=== PATIENT | female | born 1980 | race Caucasian/White ===

== ENCOUNTER 2017-01-20 10:12 | Day surgery (SDC) | payer OTHER ==
[~2017-01-20] VITALS: Ht 149.9 cm; Wt 60.6 kg
[2017-01-20] VITALS (11 sets, daily range): BP systolic 94–110; BP diastolic 54–79; PULSE 75–87; RESP 5–17; O2SAT 98–100
[~2017-01-20 10:12] MED LIST: ALBU8.5H2 INHALATION; Lactated Ringer's 1,000 ML IV ONE; PREN1TAB PO
[2017-01-20] MEDS ORDERED: Dexamethasone 4 mg/mL Inj ONE (10:13)
[2017-01-20] MEDS ORDERED: Ondansetron 2 mg/mL 2 mL Inj ONE (10:13)
[2017-01-20] MEDS ORDERED: MetoCLOpramide 5 mg/mL 2 mL Inj ONE (10:13)
[2017-01-20] MEDS ORDERED: Propofol 10,000 mCg/mL 20 mL Inj ONE (10:13)
[2017-01-20] MEDS ORDERED: fentaNYL-PF 50 mCg/mL 2 mL Inj ONE (10:13)
[2017-01-20] MEDS ORDERED: Phenylephrine/NS 100 mCg/mL 10 mL Syringe IVPUSH ONE (10:13)
[2017-01-20] MEDS ORDERED: Lactated Ringer's 500 ML IV PRN (11:12)
[2017-01-20] MEDS ORDERED: Lactated Ringer's 1,000 ML IV SCH (11:12)
[2017-01-20] MEDS ORDERED: Ondansetron 2 mg/mL 2 mL Inj IVPUSH PRN ×2 (11:15→12:50)
[2017-01-20] MEDS ORDERED: EPHEDrine Sulfate 50 mg/mL Inj IVPUSH PRN (11:15)
[2017-01-20] MEDS ORDERED: Albuterol 2.5 mg/3 mL Inhalation Solution NEB PRN (11:15)
[2017-01-20] MEDS ORDERED: Phenylephrine 10,000 mCg/mL Inj IVPUSH PRN (11:15)
[2017-01-20] MEDS ORDERED: HYDROmorphone 1 mg/mL Inj IVPUSH PRN ×2 (11:15→12:50)
[2017-01-20] MEDS ORDERED: fentaNYL-PF 50 mCg/mL 2 mL Inj IVPUSH PRN (11:15)
[2017-01-20] MEDS ORDERED: Dexamethasone 4 mg/mL Inj IVPUSH PRN (11:15)
[2017-01-20] MEDS ORDERED: MetoCLOpramide 5 mg/mL 2 mL Inj IVPUSH PRN ×2 (11:15→12:50)
--- NOTE | 2017-01-20 11:35 | PCM.HPANE ---
Patient Data Date of Service: Jan 20, 2017 Surgeon Admitting Provider:Mirian Jenkins MD Attending Provider:iMrian Jenkins MD Primary Care Physician:Ashleigh Barajas DO Other Provider:Josselin Aly Anesthesia Reason for Visit Missed Ab Ht/WT & BMI Height (Feet): 4 Height (Inches): 11 Weight (Kilograms): 60.6 Body Mass Index 26.00 Allergies Coded Allergies: No Known Allergies (Unverified , 01/19/17) Past Anesthesia History Anesthesia History: Denies:: Abnormal Airway, Anesthesia Reactions, Difficult Intubation, Fam Anesthesia Reaction, Fam Malignant Hypertherm, Malignant Hyperthermia Diabetes History Hx Diabetes?: No MRSA MRSA: No Medications Home Meds Incl Beta Bill: No Reported Medications Vit Comb.10/Iron/FA (Vitafol-Ob Caplet)1 Each Tablet1 Each PO 01/19/17 Albuterol HFA (Proair HFA)8.5 Gm Hfa.aer.ad2 Puffs INHALATION Q4H #1 INHALER 01/19/17 History History of ENT Problems?: No HEENT History: Denies:: Abnormal Airway Cataracts Difficult Intubation Dysphagia Glaucoma Hearing Problem Sinus Problem TMJ Denture Type: None Teeth Condition: Within Normal Limits Hx of Heart Problems?: No Cardiovascular History: Denies:: Abdominal Aortic Aneurism Atrial Fibrillation Cardiac Surgery Chest Pain Congestive Heart Failure Coronary Artery Disease Edema Heart Murmur Hypertension Irregular Heartbeat Rheumatic Fever Valvular Heart Disease Hx of Respiratory Problem?: Yes Respiratory History: Positive for:: Asthma Use of Inhalers / NEBS (Pro Air) Denies:: COPD Chest Surgery Cough Dyspnea Emphysema Hemoptysis Pulmonary Embolism Tuberculosis Use of C-PAP Machine Hx Neurologic Problems?: No Hx of GI Problems?: No Hx of Problems?: No Genitourinary History: Denies:: Urinary Tract Infection HX of Peritoneal Dialysis: No Female Hx: Positive for:: Currently (MISSED AB) Denies:: Endometriosis Pelvic Inflammatory Problems with Breasts? Skin History: Denies:: History Skin Disorders? Pressure Ulcers Hx Musculoskeletal Problems?: No Musculoskeletal History: Denies:: Back Injury Degenerative Joint Fibromyalgia Joint Replacement Musculoskeletal Trauma Myasthenia Gravis Osteoarthritis Rheumatoid Arthritis Systemic Lupus Hx of Psycho/Social Problems?: No Hx Surgeries?: No Other History: Positive for:: Hospitalization (Child ) Denies:: Cancer Thyroid Disease History Blood Transfusions: Positive for:: Accept Blood Products? Denies:: Blood Transfusions Hx Diabetes: No Hx Alcohol Use: Yes (occassionally)Hx Substance Use: No Stop/Bang Treated for Sleep Apnea?: No Do You Have a CPAP Machine?: No S-Snoring: Do You Snore Loudly: No T-Tired: feel tired, fatigued: No O-Obsered: Observed not breath: No P-Blood Pressure: treated: No B- Body Mass Index > 35 kg/m2: No A- Age over 50: No N- Neck Large Circumference: No G- Gender Male: No RICARDO Total Score: 0 Risk Assessment Category Category 1A: Patient has history of documented sleep apnea, and HAS NOT received any narcotic, sedative or anesthesia administration during this stay. Category 1B: Patient has history of documented sleep apnea, and HAS received any narcotic , sedative or anesthesia administration during this stay Category 2: Patient has SUSPECTED Obstructive Sleep Apnea, and HAS received any narcotic , sedative or anesthesia administration during this stay. Category 3: Patient has SUSPECTED Obstructive Sleep Apnea and HAS NOT received narcotic, sedative or anesthesia administration during this stay. Category 4: Outpatient in Procedural Areas with known sleep apnea or who screen positive for High Risk via the STOP/BANG questionnaire. Exam Exam Vital Signs Vital Signs Date Time Temp Pulse Resp B/P Pulse Ox O2 Delivery O2 Flow Rate FiO2 01/20/17 10:40 36.7 82 16 110/59 100 Room Air General Appearance: Alert, Oriented X3, Cooperative HEENT/AIRWAY: MP 1, Neck Movement, Mouth Opening (Wide) Lungs: Clear to Auscultation, Normal Air Movement Heart: Regular Rate/Rhythm, Normal S1, Normal S2 Meds/Labs/Diagnostics Admission Meds Current Medications Lactated Ringer's (Lr) 1,000 ml @ 120 mls/hr Q8H20M ONCE IV Last administered on 01/20/17t 10:37; Start 01/20/17 at 08:49; Stop 01/20/17 at 17:08 Plan Impression Patient chart reviewed, patient interviewed and anesthestic plan with risks, benefits, and alternatives discussed, and informed consent obtained. NPO per Anesth. Guidelines: Yes ASA Physical Status: ASA2 Mod Systemic Disease Anesthetic Plan: GA Bene/Risks/Altern/Consents: Yes HP Complete Prior to Induction: Yes Chad York MD Jan 20, 2017 11:12
--- NOTE | 2017-01-20 12:44 | PCM.SURGOP ---
Surgical Operative Report Date of Service: Jan 20, 2017 Pre Operative Diagnosis 1. Missed vs Pseudo sac Post Operative Diagnosis 1. Missed vs Pseudo sac Procedure: Suction dilation and curettage Surgeon and Card Stripper: Surgeon: Mirian Jenkins MD Assistants: None Indication for Procedure 36 y/o -0-0-2 with possible ectopic vs incomplete with slowly and inappropriately rising quantitative HCG levels, and vaginal spotting. Ultrasound finding showing an irregular appearing gestational sac within the uterus. Findings: Scant amount of tissue obtained with suction D&C Awaiting final pathology Normal appearing cervix, vagina and perineum. uterus was anteflexed and mobile. No palpable adnexal masses on exam. Procedure Details The patient was taken to the operating room where her general anesthesia was obtained without difficulty. She was placed in the lithotomy position in the [facility] and prepared and draped in the normal sterile fashion. A bivalve speculum was inserted into the patient's vagina and the cervix was identified and grasped with single-tooth tenaculum. The cervix was dilated using Hegar cervical dilators to a #8 [place]. A #8 suction curved curette was then inserted and endometrial suction curettings were obtained. A sharp endometrial curette was then inserted and a gritty texture was palpated. This curette was then removed and gentle uterine massage was performed to help with hemostasis. Good hemostasis was assured at the end of the procedure. All lap and instrument counts were correct 2. Procedure the patient was taken to the recovery room awake and in good condition. Complications There were no periprocedural complications identified. Surgical Specimen Removed: Yes Specimen sent to Pathology: Yes Surgical Specimen description: Suction endometrial curettings Anesthetic Plan: GA Grafts, Implants: None Output, Estimated Blood Loss: 50 Blood Administration during leija: No Drains: None Catheters: None Post Operative Plan Discharge home when awake and stable. copies to: Irma Pink MD, Nikorn R MD Jan 20, 2017 12:44
[2017-01-20] MEDS ORDERED: oxyCODONE-Acetamin 5-325 mg Tablet PO PRN (12:50)
--- NOTE | 2017-01-20 13:07 | PCM.DIGYN ---
Surgical Discharge Instruction Dates of Hospitalization Date of Hospital Admission 01/20/2017 Providers Admitting Physician: Mirian Jenkins MD Primary Care Physician: Ashleigh Barajas DO Attending Physician: Mirian Jenkins MD Diagnosis at Time of Discharge Diagnosis at time of discharge Incomplete vs Ectopic Post-operative diagnosis 1. Missed vs Pseudo sac Problems: (1) Incomplete Plan: A suction dilation and curettage was performed today. At this time I will await your pathology results to see if any tissue was obtained. If no evidence of an intrauterine you may require methotrexate treatment for probable ectopic . Your most recent HCG level declined slightly. I will plan to continue to follow your HCG levels weekly until they are less than 5. Status: Acute ICD Code: O03.4 Diet Discharge Diet: No restrictions Activity Discharge Activity-General: Try not to overdue, Be up and about, Other ( nothing per vagina for two weeks or until vaginal bleeding has resolved.) Dressing and Incisional Care Hygiene: May shower Follow Up Plan Follow-up Provider (F9): Mirian Jenkins MD Follow-up appointment: Weeks (1) Call your provider for: Fever, Chills, Shortness of breath, Heavy vaginal bleeding, Increasing pain Mirian Jenkins MD Jan 20, 2017 13:07
--- NOTE | 2017-01-20 13:43 | PCM.ANEP1 ---
Post Anesthesia PACU Phase 1 Assessment Date of Service: Jan 20, 2017 Vital Signs Vital Signs Date Time Temp Pulse Resp B/P Pulse Ox O2 Delivery O2 Flow Rate FiO2 01/20/17 13:35 77 14 101/56 99 Room Air 01/20/17 13:23 80 17 105/61 99 Room Air 01/20/17 13:11 81 15 104/63 98 Room Air 01/20/17 13:00 83 17 108/63 99 Room Air 01/20/17 12:45 79 5 109/66 99 Room Air 01/20/17 12:40 81 17 108/57 99 Room Air 01/20/17 12:35 77 15 108/62 100 Simple Mask 10 01/20/17 12:30 37.1 75 13 94/79 100 Simple Mask 10 01/20/17 10:40 36.7 82 16 110/59 100 Room Air Anesthetic Administered: GA Level of Alertness: Sleepy, easy to arouse INFANTE's with Equal Strength: Yes Pain: No Nausea or Vomiting: No CV Function & Hydration Stable: Yes Airway Device: Oxygen Delivery: Simple Mask Lungs: Normal Air Movement Dermatome Level: Full Sensation PACU Phase 2 Assessment Complications: No Follow up Care: N/A Patient Instructions Provided: N/A Chad York MD Jan 20, 2017 13:43
--- NOTE | 2017-01-23 16:57 | PATH ---
SURGICAL PATHOLOGY Attending Physician:Mirian Jenkins, CASE STATUS: Signed Out PATIENT NAME: MAURI MATTHEW PID: [id number] : 1980 DATE COLLECTED:01/20/2017 20:27 SPECIMEN: Endometrium, Curettage CLINICAL HISTORY: RULE OUT MISSED , EVALUATING FOR IUP (MISSED ) VS ECTOPIC. PLEASE EVALUATE FOR TROPHOBLASTIC TISSUE/VILLI 1). ENDOMETRIAL CURETTINGS FINAL DIAGNOSIS: 1.ENDOCERVIX, CURETTAGE: DECIDUALIZED ENDOMETRIUM. NO CHORIONIC VILLI IDENTIFIED. ADDITIONAL STEP-SECTIONS EXAMINED. ICD10 N93.9 NOTE: Correlation with clinical and imaging findings to exclude an ectopic is recommended. These findings were reported to Dr. Jenkins by Dr. Chris Rice on 01/23/17 at 9:30 a.m. GROSS DESCRIPTION: The specimen is received in formalin, labeled with the patient's name, sublabeled as endometrial curetting-(by suction), and consists of multiple fragments of moraes semitranslucent and dark brown glistening tissue (3.0 x 2.1 x 0.3 cm in aggregate). Section code: (A) tissue. Specimen entirely submitted. 01/21/17 JM MICRO DESCRIPTION: See diagnosis. ICD-9 CODES: CPT CODES: 1: 51088 Electronically Signed Out Chris Rice MD, Ph.D. [facility] [address], [place] [address] Technical component performed at [facility], [address] [place] [address] Ave[address], [address]
== END 2017-01-20 23:59 | disposition home or self-care (01) ==
LOC: SAS 10:12 → EDSTATUS 12:15 → SAS 23:59
PROVIDERS: ATTEND Obstetrics & Gynecology
PROC: 10D17ZZ Extraction of Products of Conception, Retained, Via Natural or Artificial Opening (ICD-10-PCS; principal; 2017-01-20 12:30)
DX: O02.1 Missed abortion (principal); Z3A.00 Weeks of gestation of pregnancy not specified
CPT/HCPCS: 59820; J1100; J1885; J2250; J2370; J2405; J2765; J3010; J7120